=== PATIENT | female | born 1940 | race Caucasian/White ===

== ENCOUNTER 2021-09-17 21:50 | Inpatient (IN) | payer MEDICARE ==
[2021-09-17 22:23] LABS: #Basophils 0.1 thou/uL (0.0-0.2); #Eosinphils 0.1 thou/uL (0.0-0.7); #Lymphocytes 1.3 thou/uL (1.20-3.40); #Monocytes 0.4 thou/uL (0.11-0.59); %Basophils 0.4 % (0.0-1.0); %Eosinophils 0.4 % (0.0-10.0); %Lymphocytes 9.1 % (21.0-51.0); %Monocytes 2.9 % (0.0-10.0); %Neutrophils 87.1 % (42.0-75.0); Hemoglobin 10.8 g/dL (12.0-16.0); Mean Corpuscular HGB CONC 33.2 g/dL (32.0-36.0); Mean Corpuscular Hemoglobin 32.3 pg (27.0-31.0); Mean Corpuscular Volume 97.2 fL (78.0-98.0); Mean Platelet Volume 6.9 fL (7.4-10.4); Platelet Count 345 thou/uL (130-400); RBC Distribution Width 14.1 % (11.5-14.5); Red Blood Cell (RBC) Count 3.35 mill/uL (4.20-5.40); White Blood Cell (WBC) Count 13.8 thou/uL (4.8-10.8)
[2021-09-17 22:43] LABS: ALT (SGPT) 19 U/L (8-55); AST (SGOT) 25 U/L (5-34); Albumin 4.1 g/dL (3.4-4.8); Alkaline Phosphatase 62 U/L (40-110); Anion Gap 14 mmol/L (10-20); BUN (Urea Nitrogen) 51 mg/dL (9.8-20.1); Bilirubin, Total 0.3 mg/dL (0.2-1.2); Calc. Creatinine Clearance 0 mL/min (70-130); Calcium 8.7 mg/dL (7.8-10.44); Carbon Dioxide 17 mmol/L (23-31); Chloride 108 mmol/L (98-107); Globulin 2.7 g/dL (2.4-3.5); Glucose 109 mg/dL (83-110); Potassium 3.3 mmol/L (3.5-5.1); Protein, Total 6.8 g/dL (5.8-8.1); Sodium 136 mmol/L (136-145)
[2021-09-17] MEDS ORDERED: Morphine 4 MG/ML VIAL ONE (23:31)
[2021-09-18 01:04] LABS: Bilirubin Negative (Negative); Blood, Urine Negative (Negative); Clarity Clear (Clear); Glucose, Urine (Dipstick) Normal (Negative); Ketone, Urine Negative (Negative); Leukocyte 500 Leu/uL (Negative); Nitrite 2+ (Negative); Protein, Urine (Dipstick) Negative (Neg-Trace); RBC/HPF 0-3 HPF (0-3); Specific Gravity, Urine 1.012 (1.002-1.036); Squamous Epithelial 0-3 HPF (0-3); Urobilinogen Normal mg/dL (Less than 2); WBC/HPF 21-50 HPF (0-3)
[2021-09-18 01:06] LABS: Bacteria/HPF 1+ HPF (None Seen)
[2021-09-18] MEDS ORDERED: Promethazine HCl 25 MG/ML VIAL IM PRN ×2 (01:20→17:45)
[2021-09-18] MEDS ORDERED: Dextrose 5% in Water 1,000 ML IV PRN (01:20)
[2021-09-18] MEDS ORDERED: Dextrose 50% Abboject 50 ML SYRINGE SLOW IVP PRN (01:20)
[2021-09-18] MEDS ORDERED: hydrALAZINE 20 MG/ML VIAL SLOW IVP PRN (01:20)
[2021-09-18] MEDS ORDERED: Acetaminophen 325 MG TAB PO SCH (01:30)
[2021-09-18] MEDS: Acetaminophen 325 MG TAB PO SCH ×4 (02:06→20:50)
[2021-09-18] MEDS: Acetaminophen/Codeine 30-300mg Tablet PO SCH ×4 (02:06→20:50)
[2021-09-18] MEDS: Sodium Chloride 0.9% 1,000 ML IV SCH ×2 (02:07→13:08)
[2021-09-18] MEDS: Morphine 4 MG/ML VIAL SLOW IVP PRN ×2 (02:07→09:01)
[2021-09-18 02:19] VITALS: BMI 22.8
[2021-09-18 06:37] LABS: Hemoglobin A1c 5.3 % (4.0-6.0)
[2021-09-18 06:47] LABS: Prothrombin Time 13.7 sec (12.0-14.7)
[2021-09-18 06:48] LABS: PTT 26.8 sec (22.9-36.1)
[2021-09-18 06:59] LABS: Anion Gap 12 mmol/L (10-20); BUN (Urea Nitrogen) 42 mg/dL (9.8-20.1); CK (CPK) 57 U/L (29-168); Calc. Creatinine Clearance 21 mL/min (70-130); Calcium 8.6 mg/dL (7.8-10.44); Carbon Dioxide 16 mmol/L (23-31); Chloride 112 mmol/L (98-107); Glucose 106 mg/dL (83-110); Magnesium 1.7 mg/dL (1.6-2.6); Potassium 3.4 mmol/L (3.5-5.1); Sodium 137 mmol/L (136-145)
[2021-09-18] MEDS ORDERED: Potassium Phosphate 30 MMOL in Sodium Chloride 0.9% 250 ML 250 ML IVPB SCH (07:00)
[2021-09-18] MEDS ORDERED: Magnesium Sulfate 3 GM in Sodium Chloride 0.9% 100 ML IV SCH (07:00)
[2021-09-18] MEDS ORDERED: ceFAZolin 2 GM/Dextrose 50 ML 2 GM in Premix Bag 1 BAG IVPB SCH (07:30)
[2021-09-18] MEDS ORDERED: Potassium Chloride 40 MEQ, Magnesium Sulfate 2 GM in Sodium Chloride 0.9% 250 ML 250 ML IVPB SCH (08:00)
[2021-09-18] MEDS ORDERED: Magnesium Sulfate 2 GM in Sodium Chloride 0.9% 100 ML IVPB SCH (08:00)
[2021-09-18] MEDS ORDERED: Famotidine/PF 20 mg/2ml Vial SLOW IVP SCH (09:00)
[2021-09-18] MEDS: Senokot 8.6 MG TAB PO SCH (09:02)
[2021-09-18] MEDS: Polyethylene Glycol 3350 17 GM Packet PO SCH (09:02)
[2021-09-18 10:51] LABS: SARS-CoV-2 PCR by NAA Not Detected (NotDetected)
[2021-09-18] MEDS ORDERED: Fentanyl 100 MCG/2 ML VIAL ONE (15:50)
[2021-09-18] MEDS ORDERED: Ondansetron PF 4 MG/2 ML Vial ONE (16:05)
[2021-09-18] MEDS ORDERED: Bupivacaine HCl 0.5%/Epinephrine 1:200,000/PF 30 ml Vial ONE (16:08)
[2021-09-18] MEDS ORDERED: ceFAZolin 2 GM/Dextrose 50 ML IVPB ONE (16:19)
[2021-09-18] MEDS ORDERED: Dexmedetomidine 200 MCG/2 ML VIAL ONE (16:22)
[2021-09-18] MEDS ORDERED: Glycopyrrolate 0.2 MG/ML 5 ML SYRINGE ONE (16:36)
[2021-09-18] MEDS ORDERED: ePHEDrine 50 MG/ML VIAL ONE (16:36)
[2021-09-18] MEDS ORDERED: PROPOFOL 200 MG/20 ML VIAL ONE (16:36)
[2021-09-18] MEDS ORDERED: Metoclopramide HCl 10 MG/2 ML VIAL ONE (16:36)
[2021-09-18] MEDS ORDERED: Dexamethasone 20 MG/5 ML VIAL ONE (16:36)
[2021-09-18] MEDS ORDERED: Lidocaine 1% PF 5 ML VIAL ONE (16:36)
[2021-09-18] MEDS ORDERED: Rocuronium Bromide 10 MG/ML (10ML VIAL) ONE (16:36)
[2021-09-18] MEDS ORDERED: SUGAMMADEX SODIUM 200 MG/2 ML VIAL ONE (17:21)
[2021-09-18] MEDS ORDERED: Ondansetron HCl/PF 4 MG/2 ML Vial IVP PRN (17:45)
[2021-09-18] MEDS ORDERED: Promethazine HCl 25 MG/ML VIAL IVPB PRN (17:45)
[2021-09-18] MEDS: Ondansetron PF 4 MG/2 ML Vial IVP PRN (20:50)
[2021-09-19] MEDS: ceFAZolin 2 GM/Dextrose 50 ML 2 GM in Premix Bag 1 BAG IVPB SCH ×3 (00:04→17:16)
[2021-09-19] MEDS: Acetaminophen/Codeine 30-300mg Tablet PO SCH ×4 (03:24→19:43)
[2021-09-19] MEDS: Acetaminophen 325 MG TAB PO SCH ×4 (03:25→19:43)
[2021-09-19 06:58] LABS: #Lymphocytes 0.7 thou/uL (1.20-3.40); #Monocytes 0.3 thou/uL (0.11-0.59); #Neutrophils 9.5 thou/uL (1.40-6.50); %Basophils 0.1 % (0.0-1.0); %Eosinophils 0.1 % (0.0-10.0); %Lymphocytes 6.5 % (21.0-51.0); %Monocytes 3.2 % (0.0-10.0); %Neutrophils 90.1 % (42.0-75.0); Hemoglobin 9.5 g/dL (12.0-16.0); Mean Corpuscular HGB CONC 32.1 g/dL (32.0-36.0); Mean Corpuscular Hemoglobin 32.1 pg (27.0-31.0); Mean Platelet Volume 7.2 fL (7.4-10.4); Platelet Count 269 thou/uL (130-400); RBC Distribution Width 14.4 % (11.5-14.5); Red Blood Cell (RBC) Count 2.95 mill/uL (4.20-5.40); White Blood Cell (WBC) Count 10.5 thou/uL (4.8-10.8)
[2021-09-19 07:20] LABS: Anion Gap 14 mmol/L (10-20); BUN (Urea Nitrogen) 35 mg/dL (9.8-20.1); Calc. Creatinine Clearance 23 mL/min (70-130); Calcium 8.6 mg/dL (7.8-10.44); Carbon Dioxide 16 mmol/L (23-31); Chloride 110 mmol/L (98-107); Glucose 124 mg/dL (83-110); Phosphorus 4.2 mg/dL (2.3-4.7); Potassium 4.4 mmol/L (3.5-5.1); Sodium 136 mmol/L (136-145)
[2021-09-19] MEDS: Polyethylene Glycol 3350 17 GM Packet PO SCH (08:59)
[2021-09-19] MEDS ORDERED: Non-Formulary Item 1 EACH (Triamterene/Hydrochlorothiazid [Triamterene-Hctz 37.5-25 Mg Cp PO SCH (09:00)
[2021-09-19] MEDS: Senokot 8.6 MG TAB PO SCH (09:00)
[2021-09-19] MEDS: Heparin 5,000 UNITS/ML VIAL SC SCH ×3 (09:00→19:42)
[2021-09-19] MEDS ORDERED: Triamterene/Hydrochlorothiazide 37.5 mg/25 mg Tablet PO SCH (09:00)
[2021-09-19] MEDS: Ascorbic Acid 500 mg Chewable Tablet PO SCH ×2 (09:01→19:42)
[2021-09-19] MEDS: Ferrous Sulfate 325 MG TAB PO SCH ×2 (09:01→17:16)
[2021-09-19] MEDS: Ondansetron PF 4 MG/2 ML Vial IVP PRN (19:42)
[2021-09-20] MEDS: Acetaminophen/Codeine 30-300mg Tablet PO SCH ×3 (00:43→23:56)
[2021-09-20] MEDS: Acetaminophen 325 MG TAB PO SCH ×4 (00:43→23:55)
[2021-09-20 07:02] LABS: #Lymphocytes 1.2 thou/uL (1.20-3.40); #Monocytes 0.6 thou/uL (0.11-0.59); #Neutrophils 7.1 thou/uL (1.40-6.50); %Basophils 0.2 % (0.0-1.0); %Eosinophils 0.3 % (0.0-10.0); %Lymphocytes 13.7 % (21.0-51.0); %Monocytes 6.2 % (0.0-10.0); %Neutrophils 79.5 % (42.0-75.0); Hemoglobin 8.9 g/dL (12.0-16.0); Mean Corpuscular HGB CONC 32.5 g/dL (32.0-36.0); Mean Corpuscular Hemoglobin 32.2 pg (27.0-31.0); Mean Platelet Volume 6.8 fL (7.4-10.4); Platelet Count 280 thou/uL (130-400); RBC Distribution Width 14.3 % (11.5-14.5); Red Blood Cell (RBC) Count 2.78 mill/uL (4.20-5.40); White Blood Cell (WBC) Count 8.9 thou/uL (4.8-10.8)
[2021-09-20 07:35] LABS: Anion Gap 13 mmol/L (10-20); BUN (Urea Nitrogen) 43 mg/dL (9.8-20.1); Calc. Creatinine Clearance 19 mL/min (70-130); Calcium 8.7 mg/dL (7.8-10.44); Carbon Dioxide 18 mmol/L (23-31); Chloride 107 mmol/L (98-107); Glucose 97 mg/dL (83-110); Magnesium 1.8 mg/dL (1.6-2.6); Phosphorus 3.2 mg/dL (2.3-4.7); Potassium 4.4 mmol/L (3.5-5.1); Sodium 134 mmol/L (136-145)
[2021-09-20] MEDS ORDERED: Sodium Chloride 0.9% 500 ML IV SCH ×2 (08:15→15:00)
[2021-09-20] MEDS: Ascorbic Acid 500 mg Chewable Tablet PO SCH ×2 (09:37→20:02)
[2021-09-20] MEDS: Heparin 5,000 UNITS/ML VIAL SC SCH ×3 (09:37→20:02)
[2021-09-20] MEDS ORDERED: Acetaminophen/Codeine 30-300mg Tablet PO PRN (09:37)
[2021-09-20] MEDS: Ferrous Sulfate 325 MG TAB PO SCH ×2 (09:38→16:08)
[2021-09-20] MEDS: Ondansetron PF 4 MG/2 ML Vial IVP PRN ×2 (09:50→16:13)
[2021-09-20] MEDS: Senokot 8.6 MG TAB PO SCH (10:49)
[2021-09-20] MEDS: Polyethylene Glycol 3350 17 GM Packet PO SCH (10:49)
[2021-09-20] MEDS ORDERED: Acetaminophen/Codeine 30-300mg Tablet PO SCH (12:00)
[2021-09-20] MEDS ORDERED: Sodium Chloride 0.9% 1,000 ML IV SCH ×3 (14:15→19:22)
[2021-09-21 06:12] LABS: Anion Gap 10 mmol/L (10-20); BUN (Urea Nitrogen) 44 mg/dL (9.8-20.1); Calc. Creatinine Clearance 21 mL/min (70-130); Calcium 8.6 mg/dL (7.8-10.44); Carbon Dioxide 21 mmol/L (23-31); Chloride 109 mmol/L (98-107); Glucose 87 mg/dL (83-110); Potassium 4.5 mmol/L (3.5-5.1); Sodium 135 mmol/L (136-145)
[2021-09-21] MEDS: Acetaminophen/Codeine 30-300mg Tablet PO PRN (06:26)
[2021-09-21] MEDS: Ondansetron PF 4 MG/2 ML Vial IVP PRN (06:41)
[2021-09-21] MEDS: Ferrous Sulfate 325 MG TAB PO SCH ×2 (08:49→17:20)
[2021-09-21] MEDS: Acetaminophen 325 MG TAB PO SCH ×2 (08:49→14:59)
[2021-09-21] MEDS: Heparin 5,000 UNITS/ML VIAL SC SCH ×3 (08:50→20:56)
[2021-09-21] MEDS: Ascorbic Acid 500 mg Chewable Tablet PO SCH ×2 (08:50→20:56)
[2021-09-21] MEDS: Acetaminophen/Codeine 30-300mg Tablet PO SCH ×2 (08:50→17:19)
[2021-09-21] MEDS: Senokot 8.6 MG TAB PO SCH (08:53)
[2021-09-21] MEDS: Polyethylene Glycol 3350 17 GM Packet PO SCH (08:54)
[2021-09-21] MEDS ORDERED: Morphine 4 MG/ML VIAL SLOW IVP SCH (10:15)
[2021-09-21] MEDS ORDERED: Sodium Chloride 0.9% 500 ML IV SCH (15:45)
[2021-09-21] MEDS ORDERED: Sodium Chloride 0.9% 1,000 ML IV SCH ×2 (22:00)
[2021-09-22] MEDS: Acetaminophen/Codeine 30-300mg Tablet PO SCH ×2 (00:33→08:13)
[2021-09-22] MEDS: Acetaminophen 325 MG TAB PO SCH ×2 (00:34→08:12)
[2021-09-22 05:40] LABS: Anion Gap 10 mmol/L (10-20); BUN (Urea Nitrogen) 37 mg/dL (9.8-20.1); Calc. Creatinine Clearance 25 mL/min (70-130); Calcium 8.5 mg/dL (7.8-10.44); Carbon Dioxide 20 mmol/L (23-31); Chloride 108 mmol/L (98-107); Glucose 104 mg/dL (83-110); Potassium 3.9 mmol/L (3.5-5.1); Sodium 134 mmol/L (136-145)
[2021-09-22] MEDS: Acetaminophen/Codeine 30-300mg Tablet PO PRN (05:55)
[2021-09-22 08:06] VITALS: BP 130/70; TEMP 98
[2021-09-22] MEDS: Ferrous Sulfate 325 MG TAB PO SCH (08:12)
[2021-09-22] MEDS: Heparin 5,000 UNITS/ML VIAL SC SCH (08:13)
[2021-09-22] MEDS: Ascorbic Acid 500 mg Chewable Tablet PO SCH (08:13)
[2021-09-22] MEDS: Senokot 8.6 MG TAB PO SCH (08:14)
[2021-09-22] MEDS: Polyethylene Glycol 3350 17 GM Packet PO SCH (08:15)
[2021-09-22] MEDS: Ondansetron PF 4 MG/2 ML Vial IVP PRN (08:18)
== END 2021-09-22 11:03 | DRG 481 ==
LOC: ERS 21:50 → SURG A 09-18 00:52
PROVIDERS: ADMIT Specialist; ATTEND Specialist
PROC: 0QS604Z Reposition Right Upper Femur with Internal Fixation Device, Open Approach (ICD-10-PCS; principal; 2021-09-18)
DX: S72.142A Displaced intertrochanteric fracture of left femur, initial encounter for closed fracture (principal); N18.4 Chronic kidney disease, stage 4 (severe); N17.9 Acute kidney failure, unspecified; N39.0 Urinary tract infection, site not specified; S42.032A Displaced fracture of lateral end of left clavicle, initial encounter for closed fracture; W19.XXXA Unspecified fall, initial encounter; I25.10 Atherosclerotic heart disease of native coronary artery without angina pectoris; E78.5 Hyperlipidemia, unspecified; E78.00 Pure hypercholesterolemia, unspecified; I12.9 Hypertensive chronic kidney disease with stage 1 through stage 4 chronic kidney disease, or unspecified chronic kidney disease; Z20.822 Contact with and (suspected) exposure to COVID-19; Z87.891 Personal history of nicotine dependence; Z90.49 Acquired absence of other specified parts of digestive tract; Z90.710 Acquired absence of both cervix and uterus; Y92.009 Unspecified place in unspecified non-institutional (private) residence as the place of occurrence of the external cause; Z95.5 Presence of coronary angioplasty implant and graft; Z85.038 Personal history of other malignant neoplasm of large intestine; Z88.5 Allergy status to narcotic agent
CPT/HCPCS: 36415; 70450; 71045; 72125; 76000; 80048; 80053; 81003; 81015; 82550; 83036; 83735; 83880; 84100; 85025; 85610; 85730; 86850; 86870; 86900; 86901; 86922; 93005; 93010; 96374; C1713; J0690; J1100; J1644; J2270; J2405; J2550; J2704; J2765; J3010; J3475; J3480; J3490; J7030; J7050; S0028; U0003; U0005